=== PATIENT | male | born 1965 ===

== ENCOUNTER 2019-11-05 06:30 | Inpatient (IN) | payer OTHER ==
[~2019-11-05] VITALS: Ht 180.3 cm; Wt 96.2 kg
[~2019-11-05 06:30] MED LIST: AMBIEN CR12.5 MG PO; CLONAZEPAM2 MG PO; NEURONTIN300 MG PO; SILDENAFIL CITR50 MG PO; WELLBUTRIN SR150 MG PO; ZOCOR40 MG PO
== END 2019-11-06 13:17 | disposition home or self-care (01) | DRG 710 ==
LOC: CIR.AMB 06:30 → O/R 08:45 → EDSTATUS 08:45 → CIR.AMB 08:45 → SURH 17:27
PROVIDERS: ADMIT Surgery; ATTEND Surgery
PROC: 0VBS0ZZ Excision of Penis, Open Approach (ICD-10-PCS; 2019-11-05)
PROC: 0VUS0JZ Supplement Penis with Synthetic Substitute, Open Approach (ICD-10-PCS; principal; 2019-11-05 09:00)
DX: N52.9 Male erectile dysfunction, unspecified (principal); N48.89 Other specified disorders of penis; N48.6 Induration penis plastica; Z20.828 Contact with and (suspected) exposure to other viral communicable diseases